=== PATIENT | male | born 1975 | race Caucasian/White ===

== ENCOUNTER 2017-12-20 21:04 | Emergency (ER) | payer MEDICAID ==
[~2017-12-20] VITALS: Ht 177.8 cm; Wt 125.2 kg
[2017-12-20 21:20] VITALS: Ht 177.8 cm; Wt 125.2 kg
[2017-12-20 22:40] VITALS: BP 135/89
== END 2017-12-20 22:40 | disposition home or self-care (01) ==
LOC: ED 21:04
DX: G44.209 Tension-type headache, unspecified, not intractable (principal); E11.9 Type 2 diabetes mellitus without complications; M10.9 Gout, unspecified
CPT/HCPCS: J1885; J2765